=== PATIENT | male | born 1990 | race Caucasian/White ===

== ENCOUNTER 2017-08-23 18:50 | Day surgery (SDC) | payer OTHER, BC ==
[2017-08-23] MEDS ORDERED: HYDROmorphone 0.5 MG/0.5 ML SYRINGE IVPUSH ONE (19:04)
[2017-08-23] MEDS ORDERED: Lactated Ringers 1,000 ML IV ONE (19:04)
[2017-08-23] MEDS ORDERED: Metoclopramide 10 MG/2 ML SDV IVPUSH ONE (19:04)
[2017-08-23] MEDS ORDERED: ceFAZolin 2 GM in Premix Bag 1 BAG IV ONE (19:05)
[2017-08-23] MEDS ORDERED: Diphtheria,Pertussis(Acell),Tetanus Vaccine 0.5 ML SDV IM ONE (19:05)
--- NOTE | 2017-08-23 19:12 | EDM.PDOC ---
ED HPI GENERAL MEDICAL PROBLEM - General Chief Complaint: Upper Extremity Injury/Pain Stated Complaint: REFFERED FROM [facility] RIGHT HAND INJURIED Time Seen by Provider: 08/23/17 19:03 Source of Information: Reports: Patient History Limitations: Reports: No Limitations - History of Present Illness INITIAL COMMENTS - FREE TEXT/NARRATIVE: 27-year-old male presents to the ED with a work related injury to his distal right index finger. This occurred in the workplace at approximately 1400 hrs. today. 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 This resulted in an acute amputation to the distal half of his right index finger. 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 Patient was initially seen and assessed at [facility] or [facility] were received 12 mg of morphine and 4 mg of Zofran IV for pain relief. He is from [employer] and therefore was sent to [place] for definitive orthopedic management. Doesn't know when his last tetanus toxoid was but it was likely at age 15 or 16. He has no allergies. Last meal was approximately 11:00 today. He had some fluids around 1300 hrs. is before the accident happened. Otherwise he is nothing by mouth. He enjoys good health. Takes no medications has no asthma or diabetes. Onset: Today Onset Date: 08/25/17 Onset Time: 14:00 Duration: Hour(s): Location: Reports: Upper Extremity, Right (Right distal index finger.) Quality: Reports: Ache, Throbbing Severity: Moderate (Current pain is 4 out of 10.) Improves with: Reports: None Worsens with: Reports: Other (Touching the area) Context: Reports: Trauma. Denies: Activity, Exercise, Lifting, Sick Contact Associated Symptoms: Reports: No Other Symptoms (Trauma in the workplace.) Treatments [employer]ING [employer]: Reports: Other (see below) (Received 12 mg of morphine and 4 mg of Zofran at [facility] earlier this afternoon.) Right Hand Pain Score (Numeric/FACES): 6 - Related Data Allergies Allergy/AdvReac Type Severity Reaction Status Date / Time No Known Allergies Allergy Verified 08/23/17 19:00 Home Meds: Home Meds . [No Known Home Meds] 08/23/17 [History] Past Medical History - Past Surgical History Head Surgeries/Procedures: Reports: None Social & Family History - Living Situation & Occupation Living situation: Reports: Single Occupation: Employed Review of Systems - Review of Systems Review Of Systems: See Below Constitutional: Reports: No Symptoms Eyes: Reports: No Symptoms Ears: Reports: No Symptoms Nose: Reports: No Symptoms Mouth/Throat: Reports: No Symptoms Respiratory: Reports: No Symptoms Cardiovascular: Reports: No Symptoms GI/Abdominal: Reports: No Symptoms Genitourinary: Reports: No Symptoms Musculoskeletal: Reports: No Symptoms Skin: Reports: No Symptoms Neurological: Reports: No Symptoms Psychiatric: Reports: No Symptoms ED EXAM, GENERAL - Physical Exam Exam: See Below Exam Limited By: No Limitations General Appearance: Alert, WD/WN, Mild Distress Eye Exam: Bilateral Eye: Normal Inspection Throat/Mouth: Normal Inspection, Normal Lips, Normal Teeth, Normal Oropharynx Head: Atraumatic, Normocephalic Neck: Normal Inspection, Supple, Non-Tender, Full Range of Motion. No: Lymphadenopathy (L), Lymphadenopathy (R) Respiratory/Chest: No Respiratory Distress, Lungs Clear, Normal Breath Sounds, No Accessory Muscle Use, Chest Non-Tender Cardiovascular: Normal Peripheral Pulses, Regular Rate, Rhythm, No Edema, No Gallop, No Murmur, No Rub Peripheral Pulses: 3+: Carotid (L), Carotid (R), Posterior Tibial (L), Posterior Tibial (R), Dorsalis Pedis (L), Dorsalis Pedis (R) GI/Abdominal: Normal Bowel Sounds, Soft, Non-Tender, No Organomegaly, No Distention, No Abnormal Bruit, No Mass, Pelvis Stable Back Exam: Normal Inspection, Full Range of Motion Extremities: Other (Examination of the right hand reveals an acut partial application of the distal half of his right index finger tip. The nail and nailbed are gone. X-rays revealed a jagged fracture distally. The joint is still intact.has lost approximately 60% of the bony architecture of the distal phalanx. No injuries to any of the other fingers occurred. ) Neurological: No Motor/Sensory Deficits (Has sensation to the visualized portions of the index fingertip.) Psychiatric: Normal Mood, Anxious (Mild) Skin Exam: Warm, Dry, Intact, Normal Color Course - Vital Signs Last Recorded V/S: Last Vital Signs Temp 37.4 C 08/23/17 19:47 Pulse 95 08/23/17 19:47 Resp 16 08/23/17 19:47 BP 165/88 H 08/23/17 19:47 Pulse Ox 96 08/23/17 19:47 - Orders/Labs/Meds Orders: Active Orders 24 hr Category Date Time Status Admission Status [Patient Status] [ADT] Routine ADT 08/23/17 19:23 Active Communication Order [RC] ASDIRECTED Care 08/23/17 19:53 Active Elevate Extremity [RC] CONTINUOUS Care 08/23/17 19:53 Active Head of Bed Elevation [RC] ASDIRECTED Care 08/23/17 19:53 Active Ready for Discharge [RC] PER UNIT ROUTINE Care 08/23/17 19:56 Active Turn, Cough, Deep Breathe [RC] .PRN Care 08/23/17 19:53 Active Vaccines to be Administered [RC] PER UNIT ROUTINE Care 08/23/17 19:06 Active Vital Signs [RC] PER UNIT ROUTINE Care 08/23/17 19:53 Active Acetaminophen/oxyCODONE [Percocet 325-5 MG] Med 08/23/17 19:53 Active 1 - 2 tab PO Q4H PRN Ketorolac [Toradol] Med 08/23/17 19:53 Active 30 mg IVPUSH Q6H PRN Lactated Ringers [Ringers, Lactated] 1,000 ml Med 08/23/17 19:04 Active IV .BOLUS Morphine [MS Contin] Med 08/23/17 20:00 Active 15 mg PO ONETIME Ondansetron [Zofran] Med 08/23/17 19:53 Active 4 mg IVPUSH Q4H PRN Ice Therapy [OM.PC] Routine Oth 08/23/17 19:53 Ordered Schedule Procedure [COMM] Stat Oth 08/23/17 19:31 Ordered Medication Orders Lactated Ringer's (Ringers, Lactated) 1,000 mls @ 250 mls/hr IV .BOLUS ONE Stop: 08/23/17 23:03 Last Admin: 08/23/17 19:21 Dose: 250 mls/hr Ketorolac Tromethamine (Toradol) 30 mg IVPUSH Q6H PRN PRN Reason: Pain (severe 7-10) Stop: 08/28/17 19:54 Morphine Sulfate (Ms Contin) 15 mg PO ONETIME RIN Ondansetron HCl (Zofran) 4 mg IVPUSH Q4H PRN PRN Reason: Nausea/Vomiting Oxycodone/Acetaminophen (Percocet 325-5 Mg) 1 - 2 tab PO Q4H PRN PRN Reason: Pain (severe 7-10) Labs: Laboratory Tests 08/23/17 08/23/17 Range/Units 19:35 19:35 WBC 17.01 H (4.23-9.07) K/mm3 RBC 5.51 (4.63-6.08) M/mm3 Hgb 15.5 (13.7-17.5) gm/L Hct 46.4 (40.1-51.0) % MCV 84.2 (79.0-92.2) fl MCH 28.1 (25.7-32.2) pg MCHC 33.4 (32.2-35.5) g/dl RDW Std Deviation 44.0 H (35.1-43.9) fL Plt Count 279 (163-337) K/mm3 MPV 10.7 (9.4-12.3) fl Neutrophils % (Manual) 80 H (40-60) % Band Neutrophils % 0 (0-10) % Lymphocytes % (Manual) 15 L (20-40) % Atypical Lymphs % 0 % Monocytes % (Manual) 5 (2-10) % Eosinophils % (Manual) 0 L (0.8-7.0) % Basophils % (Manual) 0 L (0.2-1.2) Platelet Estimate Adequate RBC Morph Comment Normal Sodium 138 (136-145) mEq/L Potassium 4.2 (3.5-5.1) mEq/L Chloride 102 (98-107) mEq/L Carbon Dioxide 24 (21-32) mEq/L Anion Gap 16.2 H (5-15) BUN 15 (7-18) mg/dL Creatinine 1.2 (0.7-1.3) mg/dL Est Cr Clr Drug Dosing 109.41 mL/min Estimated GFR (MDRD) > 60 (>60) mL/min BUN/Creatinine Ratio 12.5 L (14-18) Glucose 117 H (74-106) mg/dL Calcium 9.5 (8.5-10.1) mg/dL Total Bilirubin 1.0 (0.2-1.0) mg/dL AST 35 (15-37) U/L ALT 52 (16-63) U/L Alkaline Phosphatase 59 (46-116) U/L Total Protein 8.3 H (6.4-8.2) g/dl Albumin 4.4 (3.4-5.0) g/dl Globulin 3.9 gm/dL Albumin/Globulin Ratio 1.1 (1-2) Meds: Medications Generic Name Dose Route Start Last Admin Trade Name Fremary PRN Reason Stop Dose Admin Lactated Ringer's 1,000 mls @ 250 mls/hr 08/23/17 19:04 08/23/17 19:21 Ringers, Lactated IV 08/23/17 23:03 250 mls/hr .BOLUS ONE Administration Ketorolac Tromethamine 30 mg 08/23/17 19:53 Toradol IVPUSH 08/28/17 19:54 Q6H PRN Pain (severe 7-10) Morphine Sulfate 15 mg 08/23/17 20:00 Ms Contin PO ONETIME RIN Ondansetron HCl 4 mg 08/23/17 19:53 Zofran IVPUSH Q4H PRN Nausea/Vomiting Oxycodone/Acetaminophen 1 - 2 tab 08/23/17 19:53 Percocet 325-5 Mg PO Q4H PRN Pain (severe 7-10) Discontinued Medications Generic Name Dose Route Start Last Admin Trade Name Sander PRN Reason Stop Dose Admin Bupivacaine HCl Confirm 08/23/17 19:45 Marcaine 0.5% Administered 08/23/17 19:46 Dose 30 ml .ROUTE .STK-MED ONE Diphtheria/Tetanus/Acell Pertussis 0.5 ml 08/23/17 19:05 08/23/17 19:14 Adacel IM 08/23/17 19:06 0.5 ml .ONCE ONE Administration Fentanyl Confirm 08/23/17 19:31 Sublimaze Administered 08/23/17 19:32 Dose 250 mcg .ROUTE .STK-MED ONE Hydromorphone HCl 1 mg 08/23/17 19:04 08/23/17 19:19 Dilaudid IVPUSH 08/23/17 19:05 1 mg ONETIME ONE Administration Cefazolin Sodium/Dextrose 2 gm 50 mls @ 100 mls/hr 08/23/17 19:05 08/23/17 19 :21 / Premix IV 08/23/17 19:34 100 mls/hr ONETIME ONE Administration Lidocaine HCl Confirm 08/23/17 19:31 Xylocaine-Mpf 1% Administered 08/23/17 19:32 Dose 4 mls @ as directed .ROUTE .STK-MED ONE Lactated Ringer's Confirm 08/23/17 20:37 Ringers, Lactated Administered 08/23/17 20:38 Dose 1,000 mls @ as directed .ROUTE .STK-MED ONE Iodine Confirm 08/23/17 19:45 Iodine 2% Mild Tincture Administered 08/23/17 19:46 Dose 30 ml .ROUTE .STK-MED ONE Lidocaine HCl Confirm 08/23/17 19:45 08/23/17 20:25 Xylocaine-Mpf 1% Administered 08/23/17 19:46 10 ml Dose Administration 30 ml .ROUTE .STK-MED ONE Metoclopramide HCl 10 mg 08/23/17 19:04 08/23/17 19:19 Reglan IVPUSH 08/23/17 19:05 10 mg ONETIME ONE Administration Midazolam HCl Confirm 08/23/17 19:30 Versed 1 Mg/Ml Administered 08/23/17 19:31 Dose 2 mg .ROUTE .STK-MED ONE Ondansetron HCl Confirm 08/23/17 19:30 Zofran Administered 08/23/17 19:31 Dose 4 mg .ROUTE .STK-MED ONE Propofol Confirm 08/23/17 19:30 Diprivan 20 Ml Administered 08/23/17 19:31 Dose 200 mg .ROUTE .STK-MED ONE Propofol Confirm 08/23/17 20:27 Diprivan 20 Ml Administered 08/23/17 20:28 Dose 200 mg .ROUTE .STK-MED ONE Propofol Confirm 08/23/17 20:47 Diprivan 20 Ml Administered 08/23/17 20:48 Dose 200 mg .ROUTE .STK-MED ONE Propofol Confirm 08/23/17 21:06 Diprivan 20 Ml Administered 08/23/17 21:07 Dose 200 mg .ROUTE .STK-MED ONE - Radiology Interpretation Free Text/Narrative:: 27-year-old male presents to the ED with a work-related injury involving his distal right index finger. Patient was essentially caught in a hydraulic tubular structure as was telescoping downwards and his gloved finger became entangled in the hydraulic tubing. This resulted in complete crush type injury to the distal phalanx with partial amputation of the proximal 60% of the distal phalanx. The nail and nailbed are gone. X-rays reveal the joint to still be intact at the DIP joint. Plan pain is currently 4-5 out of 10. He'll be given Dilaudid 1 mg IV. Reglan 10 mg IV in preparation for or. Tetanus diphtheria and pertussis vaccine will be updated. Routine labs ordered. He will receive 2 g of Ancef intravenously. Case discussed with on-call orthopedic surgeon Dr. Godfrey Gasca and he will attend him in the ED with a view to going to the OR for definitive management of partial amputation distal right index finger. - Re-Assessments/Exams Free Text/Narrative Re-Assessment/Exam: 08/23/17 19:30: Dr. Gasca is here in reviewing the patient. He will be discharged to the OR.Labs reveal an elevated white count at 17.01. Left shift of 80% neutrophils no bands. Hemoglobin 15.5 with hematocrit of 46.4. Platelet count is 279,000. Chemistry is essentially normal other than a slightly elevated anion gap at 16.2. Departure - Departure Time of Disposition: 19:45 Disposition: DC/Tfer to [facility] Condition: Fair Clinical Impression: Traumatic amputation of tip of finger of right hand - Discharge Information - My Orders Last 24 Hours: My Active Orders 08/23/17 19:04 Lactated Ringers [Ringers, Lactated] 1,000 ml IV .BOLUS 08/23/17 19:06 Vaccines to be Administered [RC] PER UNIT ROUTINE 08/23/17 19:23 Admission Status [Patient Status] [ADT] Routine - Assessment/Plan Last 24 Hours: My Active Orders 08/23/17 19:04 Lactated Ringers [Ringers, Lactated] 1,000 ml IV .BOLUS 08/23/17 19:06 Vaccines to be Administered [RC] PER UNIT ROUTINE 08/23/17 19:23 Admission Status [Patient Status] [ADT] Routine
[2017-08-23] MEDS ORDERED: Ondansetron 4 MG/2 ML SDV ONE (19:30)
[2017-08-23] MEDS ORDERED: Midazolam 1 MG/ML 2 ML SDV ONE (19:30)
[2017-08-23] MEDS ORDERED: Propofol 200 MG/20 ML SDV ONE ×4 (19:30→21:06)
[2017-08-23] MEDS ORDERED: Lidocaine 1% 4 ML ONE (19:31)
[2017-08-23] MEDS ORDERED: fentaNYL 250 MCG/5 ML SDV ONE (19:31)
--- NOTE | 2017-08-23 19:41 | PCM.PREANE ---
Preanesthetic Assessment - Anesthesia/Transfusion/Family Hx Anesthesia History: Prior Anesthesia Without Reaction Family History of Anesthesia Reaction: Other (see below) (pseudocholinesterase deficency) Transfusion History: No Prior Transfusion(s) - Review of Systems General: No Symptoms Pulmonary: No Symptoms Cardiovascular: No Symptoms Gastrointestinal: No Symptoms Neurological: No Symptoms Other: Reports: None - Physical Assessment NPO Status Date: 08/23/17 NPO Status Time: 11:00 Pulse: 95 O2 Sat by Pulse Oximetry: 96 Respiratory Rate: 16 Blood Pressure: 165/88 Temperature: 37.4 C Vital Signs: Last Vital Signs Temp 37.4 C 08/23/17 19:01 Pulse 95 08/23/17 19:01 Resp BP 165/88 H 08/23/17 19:01 Pulse Ox 96 08/23/17 19:01 Height: 1.88 m Weight: 113.398 kg ASA Class: 1E Mental Status: Alert & Oriented x3 Airway Class: Mallampati = 1 Dentition: Reports: Normal Dentition, [place](s) Thyro-Mental Finger Breadths: 3 Mouth Opening Finger Breadths: 3 ROM/Head Extension: Full Lungs: Clear to Auscultation, Normal Respiratory Effort Cardiovascular: Regular Rate, Regular Rhythm, No Murmurs - Allergies Allergies/Adverse Reactions: Allergies Allergy/AdvReac Type Severity Reaction Status Date / Time No Known Allergies Allergy Verified 08/23/17 19:00 - Blood Blood Available: No Product(s) Available: None - Anesthesia Plan Pre-Op Medication Ordered: None - Acknowledgements Anesthesia Type Planned: MAC Pt an Appropriate Candidate for the Planned Anesthesia: Yes Alternatives and Risks of Anesthesia Discussed w Pt/Guardian: Yes Pt/Guardian Understands and Agrees with Anesthesia Plan: Yes PreAnesthesia Questionnaire - Past Surgical History Head Surgeries/Procedures: Reports: None - SUBSTANCE USE Smoking Status *Q: Never Smoker Tobacco Use Within Last Twelve Months: No Second Hand Smoke Exposure: No Days Per Week of Alcohol Use: 1 Number of Drinks Per Day: 0 Total Drinks Per Week: 0 Recreational Drug Use History: No - HOME MEDS Home Medications: Home Meds . [No Known Home Meds] 08/23/17 [History] - CURRENT (IN HOUSE) MEDS Current Meds: Current Medications Lactated Ringer's (Ringers, Lactated) 1,000 mls @ 250 mls/hr IV .BOLUS ONE Stop: 08/23/17 23:03 Last Admin: 08/23/17 19:21 Dose: 250 mls/hr Discontinued Medications Diphtheria/Tetanus/Acell Pertussis (Adacel) 0.5 ml IM .ONCE ONE Stop: 08/23/17 19:06 Last Admin: 08/23/17 19:14 Dose: 0.5 ml Fentanyl (Sublimaze) Confirm Administered Dose 250 mcg .ROUTE .STK-MED ONE Stop: 08/23/17 19:32 Hydromorphone HCl (Dilaudid) 1 mg IVPUSH ONETIME ONE Stop: 08/23/17 19:05 Last Admin: 08/23/17 19:19 Dose: 1 mg Cefazolin Sodium/Dextrose 2 gm (/ Premix) 50 mls @ 100 mls/hr IV ONETIME ONE Stop: 08/23/17 19:34 Last Admin: 08/23/17 19:21 Dose: 100 mls/hr Lidocaine HCl (Xylocaine-Mpf 1%) Confirm Administered Dose 4 mls @ as directed .ROUTE .STK-MED ONE Stop: 08/23/17 19:32 Metoclopramide HCl (Reglan) 10 mg IVPUSH ONETIME ONE Stop: 08/23/17 19:05 Last Admin: 08/23/17 19:19 Dose: 10 mg Midazolam HCl (Versed 1 Mg/Ml) Confirm Administered Dose 2 mg .ROUTE .STK-MED ONE Stop: 08/23/17 19:31 Ondansetron HCl (Zofran) Confirm Administered Dose 4 mg .ROUTE .STK-MED ONE Stop: 08/23/17 19:31 Propofol (Diprivan 20 Ml) Confirm Administered Dose 200 mg .ROUTE .STK-MED ONE Stop: 08/23/17 19:31
[2017-08-23] MEDS ORDERED: Iodine/Sodium Iodide 2% Tincture 30 ML Bottle ONE (19:45)
[2017-08-23] MEDS ORDERED: Bupivacaine 0.5% 30 ML SDV ONE (19:45)
[2017-08-23] MEDS ORDERED: Ondansetron 4 MG/2 ML SDV IVPUSH PRN (19:53)
[2017-08-23] MEDS ORDERED: Ketorolac 30 MG/ML SDV IVPUSH PRN ×2 (19:53→21:22)
[2017-08-23] MEDS ORDERED: Acetaminophen/oxyCODONE 325-5 MG Tab PO PRN (19:53)
[2017-08-23] MEDS ORDERED: Morphine 15 MG Tab.ER PO SCH (20:00)
[2017-08-23] MEDS: Lidocaine 1% 30 ML SDV ONE ×2 (20:15→20:25)
[2017-08-23] MEDS ORDERED: Lactated Ringers 1,000 ML ONE (20:37)
[2017-08-23] MEDS ORDERED: HYDROmorphone 0.5 MG/0.5 ML Syringe IVPUSH PRN (21:22)
[2017-08-23] MEDS ORDERED: fentaNYL 250 MCG/5 ML SDV IVPUSH PRN (21:22)
--- NOTE | 2017-08-23 21:24 | PCM.POSTAN ---
POST ANESTHESIA ASSESSMENT - MENTAL STATUS Mental Status: Alert, Oriented - VITAL SIGNS Pulse Rate: 85 SaO2: 98 Resp Rate: 13 Blood Pressure: 137/85 Temperature: 36.8 C - RESPIRATORY Respiratory Status: Respiratory Rate WNL, Airway Patent, O2 Saturation Stable, Supplemental Oxygen - CARDIOVASCULAR CV Status: Pulse Rate WNL, Blood Pressure Stable - GASTROINTESTINAL GI Status: No Symptoms - PAIN Pain Score: 0 - POST OP HYDRATION Hydration Status: Adequate & Stable - OBSERVATIONS Free Text/Narrative:: no anesthesia complications noted
[2017-08-23] MEDS ORDERED: fentaNYL 100 MCG/2 ML SDV IVPUSH PRN (21:30)
[2017-08-23] MEDS ORDERED: cefTRIAXone 1 GM in Sodium Chloride 0.9% 100 ML IV SCH (21:30)
--- NOTE | 2017-08-24 00:52 | HP ---
DATE OF ADMISSION: 08/23/2017 HISTORY OF PRESENT ILLNESS: This is the first orthopedic outpatient admission for surgery for this 27-year- old male who was evaluated through the emergency room and found to have a crush injury with an open distal amputation of the distal portion of the right index finger. 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 The patient was initially presented to the [place] Emergency Room and transferred to the [facility] and evaluated, and the patient has now been scheduled for the surgery tonight to irrigate, debride, repair, and reconstruct the distal tip of the right index finger. Procedure has been outlined to him. He understands that and has consented to the surgery. ALLERGIES: He has no known drug allergies. PAST MEDICAL HISTORY: The patient has been a very healthy 27-year-old male who has had local anesthesia with a dentist, but he notes it does take a lot of anesthesia. Anesthesia tomlinson, the patient does have a pseudocholinesterase deficiency. The patient notes no history of bleeding. SOCIAL HISTORY: Alcohol use, he is an occasional alcohol drinker. PHYSICAL EXAMINATION: GENERAL: Reveals a well-developed, well-nourished 27-year-old male in moderate distress. HEAD, EYES, EARS, NOSE, AND THROAT: Normocephalic. NECK: Supple. CHEST: Clear. COR: Regular rate. ABDOMEN: Soft. : Intact. EXTREMITIES: Examination of the right hand reveals a right index finger with loss of the nail and nail bed area, open exposed bone. Ragged type tissues are present from the crush injury with contamination around the edges. RADIOLOGY: X-ray shows a comminuted distal phalanx fracture. PLAN: Plan will be for the patient to undergo an irrigation and debridement, repair and reconstruction of the distal portion of the right index finger. The procedure was outlined to him. He understands the risks and complications involved with it and has consented to the surgery. JUDY /[id number]
--- NOTE | 2017-08-24 06:56 | OR ---
DATE OF OPERATION: 08/23/2017 SURGEON: Godfrey Gasca MD PREOPERATIVE DIAGNOSIS: Acute crush injury distal tip, right index finger with distal amputation, open fracture distal phalanx. POSTOPERATIVE DIAGNOSIS: Acute crush injury distal tip, right index finger with distal amputation, open fracture distal phalanx. ANESTHESIA: Sedation with a digital block right index finger. OPERATION PERFORMED: Irrigation and debridement, repair and reconstruction of distal amputation site right index finger at DIP joint. DESCRIPTION OF PROCEDURE: The patient was taken to the operative room in a supine and was placed under a light sedation anesthesia in the operating room. The digital block was then placed into the right index finger using 1% lidocaine with no epinephrine, 10 mL applied at the base. Once adequate anesthesia was obtained, the operation proceeded with prepping and draping of the right hand and arm by standard technique for an open injury. Once prepping and draping was completed, the operation had proceeded with re-evaluation of the finger. There was still sensitivity. Additional 5 to 8 mL of 1% lidocaine was added to the block on the finger and then the operation had proceeded with irrigation of the distal tip with the surge lavage. Once the irrigation was completed, debridement was carried out. There was still a portion of the nail bit still remaining. This was sharply excised down to the base of the distal phalanx. The distal phalanx itself was comminuted and fractured to multiple fragments. Light debridement was carried out and then the distal phalanx was removed at the DIP joint level. Once that was removed, additional light debridement was carried out of the crush- type tissues, and on inspection found that at the flexion crease, there was a bridge of skin which was lacerated across from side to side just slightly proximal to the normal flexion crease itself creating a bridge of skin tissue. It was opted to use that bridge of skin tissue for aid in reattachment of the distal portion to the proximal portion of the volar side. When the skin and the tissues were brought together, again there was found to be still not enough length for the skin to be reattached. It was opted to remove the distal portion of the middle phalanx, the condylar heads distally, and once that was completed, the operation had proceeded with 5-0 Prolene interrupted closures of the skin fold distal to proximal on the volar aspect incorporating the bridge skin that was present, and this was all carried out after a thorough irrigation had been completed. With the completion of the closure, the operation proceeded with inspection, found to be stable. The operation proceeded with thorough irrigation again of the wounds. The skin was dried. Xeroform with dressings was applied to the index finger. The patient was placed in a short-arm splint. He tolerated the procedure well. He left the operating room in stable condition to his room for recovery. ESTIMATED BLOOD LOSS: MMODAL /[id number]
--- NOTE | 2017-08-24 06:56 | CONS ---
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 Initially, the patient presented to the emergency room in [place], evaluated, and then transferred to [facility] for evaluation of a crush injury of the index finger. The patient was seen in the emergency room, evaluated, and orthopedic consultation was called for. PHYSICAL EXAMINATION: EXTREMITIES: Examination shows a patient with a right index finger crush injury, loss of the distal tip and nail, down into the nailbed area almost approximately to the nail fold. Exposed bone was present. The wound is fairly contaminated. The patient shows good circulation to all edges of the right index finger. IMAGING: The x-rays reveal a comminuted fracture of the distal tip of the distal phalanx, right index finger, which is an open wound. IMPRESSION: The overall impression is a crush amputation of the distal tip with open fracture of distal right index finger. PLAN: Plan will be for the patient to undergo a surgical irrigation, debridement, and repair and reconstruction of the distal amputation site of the right index finger. Procedure has been outlined to him. He understands and has consented to surgery. JUDY /[id number]
== END 2017-08-23 22:35 | disposition home or self-care (01) ==
LOC: JD.ED 18:50 → JD.SDS 19:23
PROVIDERS: ATTEND Specialist
DX: S67.190A Crushing injury of right index finger, initial encounter (principal); S62.630B Displaced fracture of distal phalanx of right index finger, initial encounter for open fracture; W31.89XA Contact with other specified machinery, initial encounter
CPT/HCPCS: 26236; 36415; 80053; 85025; 90471; 90715; 96374; 96375; 99284; A9270; J0690; J0696; J1170; J2250; J2405; J2765; J3010; J7030; J7120; 99285; J2704